=== PATIENT | female | born 1975 | race Caucasian/White ===

== ENCOUNTER 2020-12-09 09:12 | Emergency (ER) | payer BC ==
[~2020-12-09] VITALS: Ht 165.1 cm; Wt 70.5 kg
[2020-12-09] MEDS ORDERED: ketorolac trometh. 30mg/ml inj. IV ONE ×2 (09:35→11:45)
[2020-12-09] MEDS ORDERED: normal saline 1000ML IV soln IVB ONE (09:35)
[2020-12-09 10:13] LABS: BASOPHILS # (AUTO) 0.1 X10'3 (0-0.2); BASOPHILS % (AUTO) 0.5 % (0-1); EOSINOPHILS # (AUTO) 0.4 X10'3 (0-0.9); HEMATOCRIT 39.4 % (35.0-45.0); HEMOGLOBIN 13.3 g/dl (12.0-16.0); LYMPHOCYTES # (AUTO) 1.4 X10'3 (1.1-4.8); LYMPHOCYTES % (AUTO) 13.4 % (21-51); MEAN CORPUSCULAR HEMOGLOBIN 30.6 PG (27.0-31.0); MEAN CORPUSCULAR HGB CONC 33.8 g/dL (33.0-36.5); MEAN CORPUSCULAR VOLUME 90.6 FL (78-98); MONOCYTES # (AUTO) 0.7 X10'3 (0-0.9); MONOCYTES % (AUTO) 7.1 % (2-12); NEUTROPHILS # (AUTO) 7.9 X10'3 (1.8-7.7); PLATELET COUNT 249 X10'3 (140-440); RED BLOOD COUNT 4.34 X10'6 (4.20-5.60); WHITE BLOOD COUNT 10.5 X10'3 (4.5-11.0)
[2020-12-09 10:36] LABS: ALANINE AMINOTRANSFERASE 24 U/L (12-78); ALBUMIN 3.6 G/DL (3.4-5.0); ALBUMIN/GLOBULIN RATIO 1.1 (1.1-1.5); ALKALINE PHOSPHATASE 45 IU/L (46-116); ANION GAP 10 (8-16); ASPARTATE AMINO TRANSFERASE 16 U/L (10-37); BILIRUBIN,TOTAL 0.7 MG/DL (0.1-1.0); BLOOD UREA NITROGEN 17 MG/DL (7-18); CALCIUM 8.5 MG/DL (8.5-10.1); CHLORIDE 105 MMOL/L (99-107); GLUCOSE 102 MG/DL (70-104); LIPASE 71 U/L (73-393); POTASSIUM 4.6 MMOL/L (3.5-5.1); SODIUM 138 MMOL/L (135-145); TOTAL CARBON DIOXIDE 22.9 MMOL/L (24-32); eGFR 61 ML/MIN
[2020-12-09] MEDS ORDERED: ondansetron/PF 4mg/2ml inj IV ONE (10:40)
[2020-12-09] MEDS ORDERED: morphine 4 MG/ML inj SYRINge IV ONE (10:40)
[2020-12-09] MEDS ORDERED: iohexol 350MG/ML 100ml bottle IV ONE (10:51)
[2020-12-09] MEDS ORDERED: oxyCODONE/APAP 10/325mg tablet PO ONE (12:15)
[2020-12-09] MEDS ORDERED: ONDA4TAB6 PO (12:24)
[2020-12-09] MEDS ORDERED: IBUP-1984 PO (12:24)
[2020-12-09] MEDS ORDERED: OXYC-145 PO (12:24)
[2020-12-09] MEDS ORDERED: FLO0.4C PO (12:24)
[2020-12-09 12:33] VITALS: BP 124/77
[2020-12-09 12:42] LABS: CLARITY,URINE CLOUDY (Clear); COLOR,URINE YELLOW (Yellow); GLUCOSE, URINE NEGATIVE (Neg); KETONES,URINE NEGATIVE (Neg); LEUKOCYTE ESTERASE ,URINE NEGATIVE (Neg); NITRITES, URINE NEGATIVE (Neg); OCCULT BLOOD,URINE LARGE (Neg); PH,URINE 7.5 (4.8-8.0); PROTEIN,URINE NEGATIVE (Neg); UROBILINOGEN,URINE 0.2 E.U/dL (0.2-1.0)
[2020-12-09 12:45] LABS: UA COLLECTION TYPE CLN CATCH MIDSTREAM
[2020-12-09 12:49] LABS: MUCUS STRANDS FEW /LPF (Neg); RBC,URINE 50-100 /HPF (0-2); SQUAMOUS EPITHELIAL CELL,UR MANY /LPF (FEW)
[2020-12-09 12:50] LABS: BACTERIA,URINE 1+ /HPF (Neg); WBC CLUMPS,URINE FEW /HPF (NEGATIVE)
== END 2020-12-09 13:23 | disposition home or self-care (01) ==
LOC: ER 09:13
DX: N20.0 Calculus of kidney (principal); M54.89 Other dorsalgia; R10.84 Generalized abdominal pain; M79.661 Pain in right lower leg; Z88.0 Allergy status to penicillin; Z88.2 Allergy status to sulfonamides; Z79.899 Other long term (current) drug therapy
CPT/HCPCS: 36415; 74177; 80053; 81001; 83690; 85025; 96374; 96375; 99285; J1885; J2270; J2405; J7030; Q9967